=== PATIENT | female | born 1955 | race Caucasian/White ===

== ENCOUNTER 2017-12-02 20:10 | Emergency (ER) | payer OTHER ==
[~2017-12-02] VITALS: Ht 157.5 cm; Wt 90.7 kg
[~2017-12-02 20:10] MED LIST: BUDEPRION XL150 MG PO; CELEXA20 MG PO; CELEXA40 MG PO; ESTRACE1 MG PO
[2017-12-02] MEDS ORDERED: LISINOPRIL20 MG PO (21:32)
[2017-12-02] MEDS ORDERED: NORCO 5-325 TA1 EACH PO (22:32)
[2017-12-02] MEDS ORDERED: CRUTCH1 EACH (22:32)
== END 2017-12-02 23:07 | disposition home or self-care (01) ==
LOC: ED 20:10
DX: S92.352A Displaced fracture of fifth metatarsal bone, left foot, initial encounter for closed fracture (principal); I10 Essential (primary) hypertension; Z88.5 Allergy status to narcotic agent; Z79.899 Other long term (current) drug therapy; X50.9XXA Other and unspecified overexertion or strenuous movements or postures, initial encounter
CPT/HCPCS: 73630; 99283